=== PATIENT | female | born 1945 | race Caucasian/White ===

== ENCOUNTER 2018-01-22 15:34 | Inpatient (IN) | payer MEDICARE ==
[~2018-01-22] VITALS: Ht 165.1 cm; Wt 73.4 kg
[~2018-01-22 15:34] MED LIST: ASCO500T8 PO; CHOL500045 PO; CITA40TA12 PO; CYAN100072 PO; FURO-92 PO; GABA800T2 PO; METH500T7 PO; MODA100T2 PO; MULT-658 PO; NAPR125O4 PO; OMEP40CA6 PO; POTA20TA89 PO; TRAM50TA2 PO
[2018-01-22 16:26] VITALS: BP 126/75
[2018-01-22] MEDS ORDERED: POTA10CA PO (16:31)
[2018-01-22] MEDS ORDERED: ENOXAPARIN 40 MG/0.4 ML SQ SCH (17:00)
[2018-01-22] MEDS ORDERED: POLYETHYLENE GLYCOL 17 GM PACKET PO PRN (17:00)
[2018-01-22] MEDS ORDERED: LABETALOL 5MG/ML, 20ML IVPush PRN (17:00)
[2018-01-22] MEDS ORDERED: ACETAMINOPHEN 325 MG TABLET PO PRN (17:00)
[2018-01-22] MEDS ORDERED: DOCUSATE 100 MG CAPSULE PO PRN (17:00)
[2018-01-22] MEDS ORDERED: ONDANSETRON 2MG/ML, 2ML IVPush PRN (17:00)
[2018-01-22] MEDS ORDERED: BISACODYL 10 MG SUPP PR PRN (17:00)
[2018-01-22] MEDS ORDERED: PLEASE ENTER HEIGHT AND WEIGHT MC SCH (17:30)
[2018-01-22] MEDS: POTASSIUM CHLORIDE 20 MEQ TAB.ER.PRT PO SCH (17:45)
[2018-01-22] MEDS: FUROSEMIDE 20 MG/2 ML IV SCH (17:45)
[2018-01-22 18:30] VITALS: BP 129/76
[2018-01-22] MEDS: SODIUM CHLORIDE FLUSH 10ML SYR IVF SCH (20:19)
[2018-01-23 00:30] VITALS: BP 115/63
[2018-01-23 05:26] LABS: BASOPHILS # (AUTO) 0.03 x10^3/uL (0-0.1); BASOPHILS % (AUTO) 1 % (0-1); EOSINOPHILS # (AUTO) 0.05 x10^3/uL (0-0.4); EOSINOPHILS % (AUTO) 1 % (1-7); LYMPHOCYTES # (AUTO) 1.66 x10^3/uL (1-3.4); LYMPHOCYTES % (AUTO) 34 % (22-44); MD NO; MEAN CORPUSCULAR HEMOGLOBIN 31.4 pg (27.0-34.8); MEAN CORPUSCULAR HGB CONC 33.1 g/dL (32.4-35.8); MEAN CORPUSCULAR VOLUME 94.8 fL (80-100); MEAN PLATELET VOLUME 8.6 fL (7.4-10.4); MONOCYTES # (AUTO) 0.54 x10^3/uL (0.2-0.8); MONOCYTES % (AUTO) 11 % (2-9); NEUTROPHILS # (AUTO) 2.61 x10^3/uL (1.8-6.8); NEUTROPHILS % (AUTO) 54 % (42-75); PLATELET COUNT 225 x10^3/uL (130-400); RED BLOOD COUNT 4.17 x10^6/uL (3.82-5.3); RED CELL DISTRIBUTION WIDTH 14.3 % (9.6-15.2)
[2018-01-23 05:35] LABS: ANION GAP 8 mmol/L (5-15); CALCIUM 7.8 mg/dL (8.5-10.1); CHLORIDE 107 mmol/L (98-107)
[2018-01-23 05:36] LABS: TROPONIN I 0.048 ng/mL (0.000-0.045)
[2018-01-23 05:38] LABS: CREATININE 0.64 mg/dL (0.55-1.02)
[2018-01-23 07:41] VITALS: BP 121/73
[2018-01-23] MEDS: FUROSEMIDE 20 MG/2 ML IV SCH (07:44)
[2018-01-23] MEDS: POTASSIUM CHLORIDE 20 MEQ TAB.ER.PRT PO SCH (07:44)
[2018-01-23] MEDS: SODIUM CHLORIDE FLUSH 10ML SYR IVF SCH (07:45)
[2018-01-23] MEDS ORDERED: CITALOPRAM 20 MG TABLET PO SCH (09:00)
[2018-01-23 12:41] LABS: TROPONIN I 0.041 ng/mL (0.000-0.045)
[2018-01-23] MEDS ORDERED: LOSA25TA2 PO (16:20)
[2018-01-23] MEDS ORDERED: METO25TA2 PO (16:20)
== END 2018-01-23 17:54 | disposition home or self-care (01) | DRG 292 ==
LOC: 5SO 16:16
PROVIDERS: ADMIT Internal Medicine; ATTEND Internal Medicine
DX: I50.43 Acute on chronic combined systolic (congestive) and diastolic (congestive) heart failure (principal); J98.11 Atelectasis; I42.9 Cardiomyopathy, unspecified; I31.3 Pericardial effusion (noninflammatory); I34.0 Nonrheumatic mitral (valve) insufficiency; K21.9 Gastro-esophageal reflux disease without esophagitis; Z87.891 Personal history of nicotine dependence; Z98.84 Bariatric surgery status; Z90.49 Acquired absence of other specified parts of digestive tract; Z80.9 Family history of malignant neoplasm, unspecified
CPT/HCPCS: 0399T; 36415; 80048; 84484; 85025; 90656; 93306; G0378; J1940

== ENCOUNTER 2018-02-13 10:47 | Day surgery (SDC) | payer MEDICARE ==
[~2018-02-13] VITALS: Ht 165.1 cm; Wt 72.3 kg
[~2018-02-13 10:47] MED LIST changes: +LOSA25TA2 PO; +METO25TA2 PO; +POTA10CA PO
[2018-02-13] MEDS ORDERED: SODIUM CHLORIDE 0.9% 1,000 ML IV ONE (13:00)
[2018-02-13 13:02] VITALS: BP 103/55
[2018-02-13] MEDS ORDERED: CHOL5000 PO (13:21)
[2018-02-13] MEDS ORDERED: CYAN500011 PO (13:21)
[2018-02-13] MEDS ORDERED: MULT-6 PO (13:21)
[2018-02-13] MEDS ORDERED: ALEN70TA3 PO (13:21)
[2018-02-13] MEDS ORDERED: DIPHENHYDRAMINE 50 MG/ML, 1ML IVPush ONE (13:30)
[2018-02-13] MEDS ORDERED: PLEASE ENTER HEIGHT AND WEIGHT MC SCH (13:30)
[2018-02-13] MEDS ORDERED: DIPHENHYDRAMINE 50 MG/ML, 1ML ONE (13:52)
[2018-02-13] MEDS ORDERED: PROPOFOL 10 MG/ML, 20ML ONE (15:48)
[2018-02-13] MEDS ORDERED: FENTANYL PF 100 MCG/2ML ONE (17:12)
[2018-02-13] MEDS ORDERED: MIDAZOLAM 1 MG/ML, 2ML ONE (17:12)
[2018-02-13] MEDS ORDERED: LIDOCAINE-MPF 1%, 5ML ONE (17:14)
[2018-02-13] MEDS ORDERED: VERAPAMIL 2.5 MG/ML, 2ML ONE (17:14)
[2018-02-13] MEDS ORDERED: LIDOCAINE 1%, 20ML ONE ×2 (17:20→17:31)
[2018-02-13] MEDS ORDERED: HEPARIN 1,000 UNITS/ML, 10ML ONE (17:21)
[2018-02-13] MEDS ORDERED: SODIUM CHLORIDE 0.9% 1,000 ML IV SCH (18:11)
== END 2018-02-13 21:51 | disposition home or self-care (01) ==
LOC: CACL 10:47
PROVIDERS: ATTEND Internal Medicine Cardiovascular Disease
DX: I27.20 Pulmonary hypertension, unspecified (principal); I34.0 Nonrheumatic mitral (valve) insufficiency; I42.8 Other cardiomyopathies; I42.9 Cardiomyopathy, unspecified; I48.91 Unspecified atrial fibrillation; J44.9 Chronic obstructive pulmonary disease, unspecified; Z87.891 Personal history of nicotine dependence; Z79.899 Other long term (current) drug therapy
CPT/HCPCS: 93312; 93321; 93325; 93460; 99156; 99157; C1769; C1894; J2250; J2704; J3010; J3490; Q9967; J1644; J1200